=== PATIENT | male | born 2000 | race Two or more races ===

== ENCOUNTER 2024-07-23 15:08 | Inpatient (IN) | payer MEDICAID, SELFPAY ==
[2024-07-23] VITALS (7 sets, daily range): BP systolic 128–144; BP diastolic 52–94; PULSE 82–104; RESP 12–22; TEMP 37–37.3; O2SAT 97–100; BMI 29.0
--- NOTE | 2024-07-23 15:37 | PD.EDUPEX ---
Upper Extremity Injury RME/HPI General Chief Complaint: Burn/Smoke Inhalation Stated Complaint: BURN TO LEFT WRIST 5 DAYS AGO Time Seen by Provider: 07/23/24 15:14 Source: patient Arrival date/time: 07/23/24 15:08 23-year-old male with no known medical history presents to the emergency room with a chief complaint of a burn to his left wrist x 5 days Mode of arrival: ambulatory Limitations: no limitations Related Data Previous Rx's ?Medication ?Instructions ?Recorded albuterol sulfate 90 mcg/actuation 2 inh inhalation QID #1 ea 09/12/21 breath activated powder inhaler bacitracin 500 unit/gram topical 1 applic topical TID #28 grams 07/23/24 ointment cephalexin 500 mg capsule 500 mg PO BID 7 days #14 caps 07/23/24 Allergies Allergy/AdvReac Type Severity Reaction Status Date / Time No Known Allergies Allergy Verified 07/23/24 15:10 ED Exam General Limitations: Present no limitations Course Orders Category Date Time Status TET,DIP/PERT AC (Adult)-Tdap [Boostrix Adult (Tdap) Med 07/23/24 15:37 Discontinued Vacc] 0.5 ml IMI .ONCE ONE Vital Signs Vital signs: Vital Signs Temperature 98.7 F 07/23/24 15:28 Pulse Rate 82 07/23/24 15:28 Respiratory Rate 16 07/23/24 15:28 Blood Pressure 128/52 L 07/23/24 15:28 Pulse Oximetry (%) 97 07/23/24 15:28 Oxygen Delivery Method Room Air 07/23/24 15:28 Extremity Injury Medications / Prescriptions Medication administrations:: Medication Administration History Discontinued Medications Diphtheria/Tetanus/Acell Pertussis (Diphth,Pertuss(Acell),Tet Vac 0.5 Ml Syr- Adult) 0.5 ml IMi .ONCE ONE Stop: 07/23/24 15:38 Last Admin: 07/23/24 16:05 Dose: 0.5 ml Documented By: Discharge Plan Plan Patient Disposition: HOME (Self Care) Discharge Disposition comment: Stable Prescriptions/Referrals Prescriptions/Med Rec: New bacitracin 500 unit/gram ointment 1 applic topical TID Qty: 28 0RF cephalexin 500 mg capsule 500 mg PO BID 7 Days Qty: 14 0RF No Action albuterol sulfate 90 mcg/actuation aerosol powdr breath activated 2 inh inhalation QID Qty: 1 0RF Problem List Clinical Impression: Second degree burn of arm Patient/Caregiver Discharge Instructions Education Materials: ED Burn, Hot Water Additional Instructions: Please follow-up with your primary care provider in the next 24 to 48 hours Antibiotics were sent to your pharmacy please pick them up and take them as indicated For any evidence of worsening signs or symptoms return to the emergency room immediately Print Language: Lebanese Stand Alone Forms: Suzan Award Info., Patient Portal Info Letter PA/TAX COMPLIANCE OFFICER Supervising Physician PA/TAX COMPLIANCE OFFICER Supervising Physician: Dr. CASTELAN
[2024-07-23] MEDS: DIPHTH,PERTUSS(ACELL),TET VAC 0.5 ML SYR- ADULT IMi (16:05)
--- NOTE | 2024-07-23 16:18 | XR_ITS ---
Examination: CT brain head without contrast. 2-D sagittal coronal reconstructions Date and time of exam:July 23, 2024 1723 hours Comparison February 16, 2017 INDICATIONS: Seizures today CTDI: vol (mGy):46.7 DLP: (mGycm):894 Technique: Multiple CT axial sections of the brain have been obtained, 5 mm slice thickness. Contrast has not been administered. 2-D sagittal, coronal reconstructions have been obtained Low dose protocols were performed. One or more of the following dose reduction techniques were used; automated exposure control, adjustment of the mA and/or KV according to patient size, use of iterative reconstruction technique. Findings: No significant ventricular enlargement. Intra-axial or extra-axial hemorrhage density is not seen. No mass effect or midline shift Basal cisterns are not remarkable. Fourth ventricle is midline. Cranial vault intact. Impression: Negative for acute hemorrhage, mass effect or midline shift Consider elective brain MRI follow-up, pre and postcontrast, seizure protocol
--- NOTE | 2024-07-23 16:26 | EDNOTE_ITS ---
<Statement entered by Rosalinda Hawk MD - 07/24/24 06:23> As co-signing physician, I was present and available for consult prn. I concur with the plan and care as documented by the midlevel provider. ED Alcohol RME/HPI General Chief Complaint: Burn/Smoke Inhalation Stated Complaint: BURN TO LEFT WRIST 5 DAYS AGO Time Seen by Provider: 07/23/24 15:14 Source: patient Arrival date/time: 07/23/24 15:08 Mode of arrival: ambulatory Limitations: no limitations RME / HPI RME / HPI narrative: 23-year-old male patient with significant history of chronic alcoholism, came in for evaluation regarding burn to the left wrist area has been ongoing for the last 2 days. Patient drinking alcohol/beer according to the sister almost every hour. When the patient was about to be discharged patient developed tonic- clonic seizure was found on the floor while waiting in the RP, lasting for few minutes. On my initial evaluation patient was noted to be confused. Patient admits of drinking alcohol, last drink was last Saturday according to him. Denies any other complaints. Patient used to drink alcohol every day. Also complained of swelling, skin, and bleeding every time he is brushing his teeth. For several weeks now. Denies any blood in the stool or vomiting blood. Related Data Previous Rx's ?Medication ?Instructions ?Recorded albuterol sulfate 90 mcg/actuation 2 inh inhalation QI D #1 ea 09/12/21 breath activated powder inhaler bacitracin 500 unit/gram topical 1 applic topical TID #28 grams 07/23/24 ointment cephalexin 500 mg capsule 500 mg PO BID 7 days #14 cap s 07/23/24 Allergies Allergy/AdvReac Type Severity Reaction Status Date / Time No Known Allergies Allergy Verified 07/23/24 15:10 Review of Systems Review of Systems Narrative Review of Systems: Review of system reviewed and within normal limits except mentioned in HPI ED Exam Narrative Physical exam: VITAL SIGNS: Reviewed. GENERAL APPEARANCE: Alert and confused, follows simple commands, no acute distress, HEAD AND FACE: Non-traumatic. ENT: PERRL, pink conjunctivitis, eyelid no trauma, Mucous membrane moist. NECK: Supple, nontender, no nuchal rigidity. CHEST: No tenderness, no crepitus, no paradoxical movement, no retractions. LUNGS: Clear, well ventilated, symmetric, no rales, no wheezing, no ronchi, no stridor, good breath sounds bilaterally. HEART: Regular rate, regular rhythm, no murmur, no gallops. ABDOMEN: Soft, positive bowel sounds, nondistended, no guarding, nontender, no rebound, no masses, RECTAL: Deferred. GENITAL: Deferred. NEUROLOGICAL: Gross motor function intact sensory function intact, Appropriate for age. MUSCULOSKELETAL: low back nontender, full range of motion. EXTREMITIES: Nontender, full range of motion. + tremors SKIN: Color pink, dry, no rash, no lacerations, no abrasions, no contusions. LYMPHATICS: Deferred. General Limitations: Present no limitations Course Quality Measures none Orders Category Date Time Status COVID-19 Screening Questionnaire NOW Care 07/23/24 19:39 Ordered Decision to Admit X1 Care 07/23/24 19:[address] head/brain wo con Stat Exams 07/23/24 16:18 Completed Alcohol, Blood Medical Stat Lab 07/23/24 16:38 Completed Bilirubin,Direct Stat Lab 07/23/24 16:38 Completed CBC Stat Lab 07/23/24 16:38 Completed CMP [Comprehensive Metabolic Panel] Stat Lab 07/23/24 16:38 Completed Drug Screen,Urine Stat Lab 07/23/24 19:17 Received Lactate (Lactic Acid) Stat Lab 07/23/24 16:38 Results PT [Prothrombin Time with INR] Stat Lab 07/23/24 16:38 Completed PTT [Partial Thromboplastin Time] Stat Lab 07/23/24 16:38 Completed UA, C/S IF [Urinalysis, C/S if Indicated] Stat Lab 07/23/24 19:17 Completed LORazepam [Ativan Inj] Med 07/23/24 16:22 Discontinued 2 mg IVP X1 ONE LORazepam [Ativan Inj] Med 07/23/24 19:33 Discontinued 2 mg IVP X1 ONE Ondansetron Inj [Zofran Inj] Med 07/23/24 17:38 Discontinued 4 mg IVP X1 ONE Ringers Lactated 1000 ml [Lactated Ringers] 1,000 ml Med 07/23/24 19:33 Active IV 999 mls/hr Sodium Chloride 0.9% 1000 ml [Ns] 1,000 ml Med 07/23/24 16:23 Discontinued IV 999 mls/hr TET,DIP/PERT AC (Adult)-Tdap [Boostrix Adult (Tdap) Med 07/23/24 15:37 Discontinued Vacc] 0.5 ml IMI .ONCE ONE levETIRAcetam INJ [Keppra Inj] Med 07/23/24 19:33 Discontinued 1,000 mg IVP X1 ONE Vital Signs Vital signs: Vital Signs Temperature 98.7 F 07/23/24 15:28 Pulse Rate 82 07/23/24 15:28 Respiratory Rate 16 07/23/24 15:28 Blood Pressure 128/52 L 07/23/24 15:28 Pulse Oximetry (%) 97 07/23/24 15:28 Oxygen Delivery Method Room Air 07/23/24 15:28 Discharge Plan Plan Patient Disposition: Admit Acute Care w/in Hospital Discharge Disposition comment: Stable Prescriptions/Referrals Prescriptions/Med Rec: New bacitracin 500 unit/gram ointment 1 applic topical TID Qty: 28 0RF cephalexin 500 mg capsule 500 mg PO BID 7 Days Qty: 14 0RF No Action albuterol sulfate 90 mcg/actuation aerosol powdr breath activated 2 inh inhalation QID Qty: 1 0RF Problem List Clinical Impression: Second degree burn of arm, Alcohol withdrawal seizure Patient/Caregiver Discharge Instructions Education Materials: ED Burn, Hot Water Additional Instructions: Please follow-up with your primary care provider in the next 24 to 48 hours Antibiotics were sent to your pharmacy please pick them up and take them as indicated For any evidence of worsening signs or symptoms return to the emergency room immediately Print Language: Anguillan Stand Alone Forms: Suzan Award Info., Patient Portal Info Letter PA/DEPUTY SHERIFF BUILDING GUARD Supervising Physician PA/OFELIA Supervising Physician: Dr. ANNELISE Olvera MDM Narrative MDM Narrative: 23-year-old male patient with significant history of chronic alcoholism, came in for evaluation regarding burn to the left wrist area has been ongoing for the last 2 days. Patient drinking alcohol/beer according to the sister almost every hour. When the patient was about to be discharged patient developed tonic- clonic seizure was found on the floor while waiting in the RP, lasting for few minutes. On my initial evaluation patient was noted to be confused. Patient admits of drinking alcohol, last drink was last Saturday according to him. Denies any other complaints. Patient used to drink alcohol every day. Also complained of swelling, skin, and bleeding every time he is brushing his teeth. For several weeks now. Denies any blood in the stool or vomiting blood. EKG showed sinus rhythm, ventricular rate of 93 bpm, no ST segment elevation or depression noted. Patient's CBC is significant for WBC count of 12.3, hemoglobin of 8.9 hematocrit of 26.6 platelet 136 CMP potassium 3.1 lactic acid 11.2 total bili 1.4 direct bili 0.5 AST 144 alkaline phos 157. Patient was given IV fluids total 2 L, Ativan 2 mg x 2, and Keppra IV Plan of care discussed with the patient agrees to be admitted for Patient was also given potassium replacement Spoke with hospitalist who admitted the patient. Patient data External records reviewed:: None Clinical information provided by:: patient Social determinants that could affect healthcare access:: alcohol use Patient has the following chronic illnesses:: None How is presenting disease/condition affected by chronic disease/condition?: no chronic disease Evaluation data The following diagnostics were reviewed and interpreted by me:: lab results, radiology exam(s) and EKG tracing(s) Lab and/or radiology exams considered but not ordered:: None Interpretation Summary: CT scan of the head came back unremarkable. The rest of the labs see MDM Medications / Prescriptions Medications or Prescriptions considered but not ordered:: None Medication administrations:: Medication Administration History Lactated Ringer's (Lactated Ringers) 1,000 mls @ 999 mls/hr IV .Q1H1M ONE Stop: 07/23/24 20:33 Discontinued Medications Diphtheria/Tetanus/Acell Pertussis (Diphth,Pertuss(Acell),Tet Vac 0.5 Ml Syr- Adult) 0.5 ml IMi .ONCE ONE Stop: 07/23/24 15:38 Last Admin: 07/23/24 16:05 Dose: 0.5 ml Documented By: Sodium Chloride (Ns) 1,000 mls @ 999 mls/hr IV .Q1H1M ONE Stop: 07/23/24 17:23 Last Infusion: 07/23/24 19:00 Dose: Infused Documented By: Admin: 07/23/24 16:35 Dose: 999 mls/hr Documented By: ANGIE Levetiracetam (Levetiracetam Inj 100 Mg/Ml Vial 5ml) 1,000 mg IVP X1 ONE Stop: 07/23/24 19:34 Lorazepam (Lorazepam 2 Mg/Ml Vial) 2 mg IVP X1 ONE Stop: 07/23/24 16:23 Last Admin: 07/23/24 16:35 Dose: 2 mg Documented By: ANGIE Lorazepam (Lorazepam 2 Mg/Ml Vial) 2 mg IVP X1 ONE Stop: 07/23/24 19:34 Ondansetron HCl (Ondansetron Inj 2 Mg/Ml Inj 2 Ml) 4 mg IVP X1 ONE; Protocol Stop: 07/23/24 17:39 Last Admin: 07/23/24 17:41 Dose: 4 mg Documented By: ANGIE Chery Ativan Zofran IV fluids Boostrix Consultations Consultation(s) initiated? (list below): No Diagnosis Differential diagnosis alcohol: alcohol withdrawal delirium, alcohol intoxication and alcohol withdrawal syndrome Most likely diagnosis given after review of the tests above:: Alcohol withdrawal seizure, second-degree burn left forearm Admission Indicated Admission indicated?: not indicated Admission Request Was there a request for admission?: Yes Admission Attestation Admission request attestation: Discussed case with [Dr. Krishnamurthy] from Hospitalist service regarding admission. Discussed patients ED course, exam findings, labs, and radiology results. The Hospitalist [agrees] to accept the patient for admission. Disposition Plan Disposition Plan: Admit
--- NOTE | 2024-07-23 16:30 | PC.NURSE ---
PT WAS FOUND BY STAFF IN [facility]AV[facility] SZ. PT WOKE UP AND WAS CONFUSED, COMBATIVE AND POSTICAL, NOTED BLOOD COMING FROM MOUTH AND POSSIBLE BITE ON HIS TONGUE. NURSE THAT WAS DOWN IN THAT SECTION STATED THAT IT POSSIBLE LASTED 1-2 MIN AND WAS TONIC CLONIC. PT STILL CONFUSED AND UNABLE TO ANSWER QUESTIONS. PT HAS KNOWN ALCOHOL ABUSE IN HX. PT MOVED TO 2 AND PLACED ON MONITOR/PULSE OX AND SZ PRECAUTIONS.
--- NOTE | 2024-07-23 16:31 | PD.EDRME ---
Rapid Medical Screening Exam RME Arrival date/time: 07/23/24 15:08 23-year-old male patient with significant history of chronic alcoholism, came in for evaluation regarding burn to the left wrist area has been ongoing for the last 5 days. When the patient was about to be discharged patient developed tonic-clonic seizure was found on the floor while waiting in the RP, lasting for few minutes. On my initial evaluation patient was noted to be confused. Patient admits of drinking alcohol, last drink was last Saturday according to him. Denies any other complaints. Patient used to drink alcohol every day. Chief Complaint: Burn/Smoke Inhalation Time Seen by Provider: 07/23/24 15:14 Vital signs: Vital Signs Temperature 98.7 F 07/23/24 15:28 Pulse Rate 82 07/23/24 15:28 Respiratory Rate 16 07/23/24 15:28 Blood Pressure 128/52 L 07/23/24 15:28 Pulse Oximetry (%) 97 07/23/24 15:28 Oxygen Delivery Method Room Air 07/23/24 15:28 Vital signs reviewed by provider: Yes RM Narrative: 23-year-old male patient with significant history of chronic alcoholism, came in for evaluation regarding burn to the left wrist area has been ongoing for the last 5 days. When the patient was about to be discharged patient developed tonic-clonic seizure was found on the floor while waiting in the RP, lasting for few minutes. On my initial evaluation patient was noted to be confused. Patient admits of drinking alcohol, last drink was last Saturday according to him. Denies any other complaints. Patient used to drink alcohol every day.
[2024-07-23] MEDS: LORazepam 2 MG/ML VIAL IVP ×2 (16:35→19:57)
[2024-07-23] MEDS: SODIUM CHLORIDE 0.9% 1000 ML 1,000 ML 999 ML IV (16:35)
[2024-07-23 17:04] LABS: Basophils # (Auto) 0.1 Thou/mm3 (0.0-0.2); Basophils % (Auto) 1 % (0-2.5); Eosinophils % (Auto) 0 % (0-10); Hematocrit 26.6 % (41.0-53.0); Immature Granulocytes % (Auto) 0 % (0-0); Immature Granulocytes Auto 0.05 Thou/mm3 (0.00-0.00); Lymphocytes # (Auto) 1.7 Thou/mm3 (1.0-4.8); Lymphocytes % (Auto) 14 % (10-50); Mean Corpuscular HGB Conc 30.5 g/dl (31.0-37.0); Mean Corpuscular Hemoglobin 21.7 pg (25.0-35.0); Mean Corpuscular Volume 71 fL (80-100); Monocytes # (Auto) 1.2 Thou/mm3 (0.0-0.8); Monocytes % (Auto) 10 % (0-12); Neutrophils # (Auto) 9.2 Thou/mm3 (1.8-7.7); Neutrophils % (Auto) 75 % (37-80); Nucleated Red Blood Cell # 0.02 Thou/mm3 (0.00-0.00); Nucleated Red Blood Cell % 0 /100 WBC (0); Platelet Count 136 Thou/mm3 (140-440); RDW Standard Deviation 51.4 fL (35.1-43.9); Red Blood Count 3.73 Miln/mm3 (4.50-5.90); White Blood Count 12.3 Thou/mm3 (3.8-10.6)
[2024-07-23 17:05] LABS: Lactate (Lactic Acid) 11.2 mMol/L (0.4-2.0)
[2024-07-23 17:26] LABS: INR 1.1 (0.9-1.3); Partial Thromboplastin Time 26.7 Seconds (22.0-36.0); Prothrombin Time 12.1 Seconds (9.0-12.2)
[2024-07-23 17:34] LABS: Alanine Aminotransferase 46 U/L (10-49); Albumin, Serum 4.6 gm/dL (3.5-5.0); Albumin/Globulin Ratio 1.1 (1.2-2.2); Alcohol, Blood Medical < 3.0 mg/dL (0-10.0); Alkaline Phosphatase 157 U/L (46-116); Anion Gap 20 (7-16); Aspartate Amino Transferase 144 U/L (0-34); BUN/Creatinine Ratio 12 Ratio (12-20); Bilirubin,Direct 0.5 mg/dL (0.0-0.3); Bilirubin,Total 1.4 mg/dL (0.3-1.2); Blood Urea Nitrogen 11 mg/dL (9-23); Calcium 8.8 mg/dL (8.3-10.6); Calcium (Corrected) 8.8 mg/dL (8.5-10.1); Carbon Dioxide 20.8 mMol/L (20.0-31.0); Chloride 95 mMol/L (98-107); Creatinine (Component) 0.9 mg/dL (0.6-1.3); Estimated Creatinine Clearance 125.9 mL/min (>60); Globulin 4.3 gm/dL (2.3-3.5); Glucose 136 mg/dL (74-106); Osmolality,Calculated 273 (275-295); Potassium 3.1 mMol/L (3.4-5.1); Sodium 136 mMol/L (136-145); Total Protein 8.9 gm/dL (5.7-8.2); eGFR > 60 See Note
[2024-07-23] MEDS: ONDANSETRON INJ 2 MG/ML INJ 2 ML 4 MG IVP (17:41)
[2024-07-23 17:44] LABS: Hemoglobin 8.1 g/dL (13.5-16.0)
[2024-07-23 19:28] LABS: Collection Type, Urine Clean Catch
[2024-07-23 19:31] LABS: Bilirubin,Urine Negative (Negative); Blood,Urine Negative (Negative); Clarity,Urine Clear (Clear/Hazy); Color,Urine Lt-Yellow (Lt Yel-Yel); Culture Indicated,Urine Not Indicated; Glucose, Urine Negative (Negative); Ketones,Urine Negative (Negative); Leukocyte Esterase,Urine Negative (Negative); Nitrite,Urine Negative (Negative); PH,Urine 7.5 (5.0-7.0); Protein,Urine 1+ (Neg - Trace); RBC,Urine 2 /hpf (0-3); Specific Gravity,Urine 1.014 (1.001-1.035); Squamous Epithelial Cell,Urine < 1 /hpf (0-5); Urobilinogen,Urine Negative mg/dL (0.0-1.0); WBC,Urine 1 /hpf (0-5)
[2024-07-23 19:58] LABS: Reflex Lactate? Y
[2024-07-23] MEDS: levETIRAcetam INJ 100 MG/ML VIAL 5ML 1000 MG IVP (19:58)
[2024-07-23] MEDS: RINGERS LACTATED 1000 ML 1,000 ML 999 ML IV (19:58)
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
[2024-07-23] MEDS: Magnesium Sulfate 2 GM Ivpb 2 GM/50 ML BAG IV (20:42)
[2024-07-23] MEDS: THIAMINE INJ 100 MG/ML VIAL 2 ML IVP (20:45)
[2024-07-23] MEDS: FOLIC ACID INJ 1 MG/0.2 ML IVP (20:46)
[2024-07-23 20:50] LABS: Lactic Acid, 3 HR 1.6 mMol/L (0.4-2.0)
[2024-07-23 22:10] LABS: Amphetamine/Methamp Scrn,U Negative (Negative); Barbiturate Screen,Urine Negative (Negative); Benzodiazepines Screen,Urine Negative (Negative); Benzoylecgonine Screen, Ur Negative (Negative); Fentanyl Screen,Urine Negative (Negative); Opiate Screen,Urine Negative (Negative); THC Screen,Urine Negative (Negative)
[2024-07-23 22:15] LABS: LDH (Lactate Dehydrogenase) 198 U/L (120-246)
[2024-07-23] MEDS: chlordiazePOXIDE HCl 25 MG CAPSULE PO (22:39)
[2024-07-24] VITALS (11 sets, daily range): BP systolic 104–132; BP diastolic 62–80; PULSE 76–139; RESP 14–98; TEMP 36.1–37.7; O2SAT 97–100; BMI 24.3
[2024-07-24] MEDS: LORazepam 0.5 MG TABLET 1 MG PO ×2 (04:07→08:39)
[2024-07-24] MEDS: chlordiazePOXIDE HCl 25 MG CAPSULE PO ×3 (05:37→21:32)
[2024-07-24 06:15] LABS: Basophils % (Auto) 1 % (0-2.5); Eosinophils # (Auto) 0.2 Thou/mm3 (0.0-0.5); Eosinophils % (Auto) 2 % (0-10); Hematocrit 25.2 % (41.0-53.0); Immature Granulocytes % (Auto) 0 % (0-0); Immature Granulocytes Auto 0.02 Thou/mm3 (0.00-0.00); Immature Reticulocyte Fraction 33.3 % (2.3-13.4); Lymphocytes # (Auto) 0.8 Thou/mm3 (1.0-4.8); Lymphocytes % (Auto) 12 % (10-50); Mean Corpuscular HGB Conc 30.2 g/dl (31.0-37.0); Mean Corpuscular Hemoglobin 21.7 pg (25.0-35.0); Mean Corpuscular Volume 72 fL (80-100); Monocytes # (Auto) 0.7 Thou/mm3 (0.0-0.8); Monocytes % (Auto) 10 % (0-12); Neutrophils # (Auto) 4.9 Thou/mm3 (1.8-7.7); Neutrophils % (Auto) 75 % (37-80); Nucleated Red Blood Cell % 0 /100 WBC (0); Platelet Count 108 Thou/mm3 (140-440); RDW Standard Deviation 50.6 fL (35.1-43.9); Red Blood Count 3.51 Miln/mm3 (4.50-5.90); Reticulocyte % (Auto) 2.5 % (0.5-1.5); Reticulocyte Absolute Auto 87.4 Biln/L (25.0-75.0); White Blood Count 6.5 Thou/mm3 (3.8-10.6)
[2024-07-24 06:23] LABS: Hemoglobin 7.6 g/dL (13.5-16.0)
[2024-07-24 06:26] LABS: INR 1.1 (0.9-1.3); Prothrombin Time 11.9 Seconds (9.0-12.2)
[2024-07-24 06:29] LABS: Iron 41 mcg/dL (65-175); Percent Iron Saturation 9 % (20-55); Total Iron Binding Capacity 423 mcg/dL (250-425); Unsaturated Iron Binding 382 (225-295)
[2024-07-24 06:38] LABS: Alanine Aminotransferase 37 U/L (10-49); Albumin, Serum 3.9 gm/dL (3.5-5.0); Alkaline Phosphatase 133 U/L (46-116); Anion Gap 10 (7-16); Aspartate Amino Transferase 144 U/L (0-34); BUN/Creatinine Ratio 12 Ratio (12-20); Bilirubin,Direct 0.6 mg/dL (0.0-0.3); Bilirubin,Total 1.5 mg/dL (0.3-1.2); Blood Urea Nitrogen 7 mg/dL (9-23); Calcium 8.4 mg/dL (8.3-10.6); Carbon Dioxide 27.2 mMol/L (20.0-31.0); Cardiac Risk Estimate 2.2 RATIO (4.0-6.7); Chloride 100 mMol/L (98-107); Cholesterol 276 mg/dL (132-200); Creatinine (Component) 0.6 mg/dL (0.6-1.3); Estimated Creatinine Clearance 169.8 mL/min (>60); Glucose 93 mg/dL (74-106); HDL Cholesterol 124 mg/dL (40-60); LDL Cholesterol,Calculated 133 mg/dL (0-130); Magnesium 2.1 mg/dL (1.6-2.6); Osmolality,Calculated 271 (275-295); Phosphorous 2.5 mg/dL (2.4-5.1); Potassium 3.3 mMol/L (3.4-5.1); Sodium 137 mMol/L (136-145); Thyroid Stimulating Hormone 2.38 uIU/mL (0.55-4.78); Total Protein 7.6 gm/dL (5.7-8.2); Triglycerides 96 mg/dL (30-150); eGFR > 60 See Note
[2024-07-24] MEDS: FOLIC ACID INJ 1 MG/0.2 ML IVP (08:21)
[2024-07-24] MEDS: PANTOPRAZOLE INJ 40 MG VIAL IVP (08:21)
[2024-07-24] MEDS: POTASSIUM CHLORIDE 20 mEq TABCR 40 MEQ PO ×2 (08:39→11:26)
--- NOTE | 2024-07-24 09:23 | PC.SS ---
Follow up note: Pt is on CWAL Protocol. Hemoglobin is low. Consulting GI. FOBT is pending.
[2024-07-24 09:25] LABS: Ferritin 17 ng/mL (10.5-307.3)
--- NOTE | 2024-07-24 10:02 | XR_ITS ---
Examination: Abdomen sonogram, complete Date and time of exam: July 24, 2024 1016 hours INDICATIONS: Elevated liver function tests on laboratory examination 2 days ago. Technique: Multiple real-time grayscale transabdominal sonographic images of the abdomen have been obtained. Findings: 6 mm gallbladder polyp Gallbladder wall is thickened up to 0.54 cm with edema No gallstones Common bile duct 0.3 cm Pancreatic head 2.3 cm Aorta not enlarged. Liver 18.5 cm fatty infiltration mildly lobular contour. Normal hepatopedal portal venous flow Patent IVC Right kidney 13.1 cm renal cortex 1.6 cm Left kidney 12.2 cm cortex 2.2 cm Mild renal parenchymal scar formation Spleen 12.1 cm IMPRESSION: Findings most consistent with acute acalculous cholecystitis, recommend HIDA scan or MRCP follow-up
[2024-07-24] MEDS: THIAMINE INJ 500 MG in SODIUM CHLORIDE 0.9% 100 ML 210 MG IV ×3 (10:04→21:31)
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
[2024-07-24 10:11] LABS: Folate 20.02 ng/mL (>5.38); Vitamin B12 1119 pg/mL (211-911)
--- NOTE | 2024-07-24 11:10 | PC.SS ---
SS met with patient regarding his d/c plan. Pt is alert/oriented. Pt was admitted for alcohol Withdrawal. Pt states he last consumed alcohol (3) 48 oz beers on Saturday. Pt explained he consumes about a 12 pack of beer everyday for the past 2 years. SS offered pt community resource to AA meeting and pt was receptive. Pt confirmed demographic and contact information is correct on facesheet. Pt resides with his sister, brother, and brother in law. Pt ambulates independently without assistance or DME. Pt is ok with all ADLs. Patient?s pharmacy of choice is [facility] on [address]. Pt named his sister, Lorenza Marroquin medical decision maker if he is unable. Patient?s choice is to return home upon d/c and his sister will provide transportation. Pt is requesting to establish PCP at [facility]. D/C plan: Return home Next of Kin: Lorenza Marroquin, sister, phone# [phone] PCP: [facility] Address: Correct on facesheet
--- NOTE | 2024-07-24 11:24 | PCS.ST ---
Tolerating diet. No dysphagia. No formal swallow evaluation warranted at this time.
[2024-07-24 11:47] LABS: Path Review Blood Smear Sent to Pathologist
[2024-07-24] MEDS: LORazepam 0.5 MG TABLET PO (12:46)
[2024-07-24 14:24] LABS: Hematocrit 25.7 % (41.0-53.0)
[2024-07-24] MEDS: ATORVASTATIN CALCIUM 10 MG TABLET PO (21:32)
[2024-07-25] VITALS (8 sets, daily range): BP systolic 116–133; BP diastolic 74–92; PULSE 65–103; RESP 15–100; TEMP 36.1–36.8; O2SAT 99–100; BMI 24.2
[2024-07-25] MEDS: chlordiazePOXIDE HCl 25 MG CAPSULE PO ×3 (05:17→21:26)
[2024-07-25] MEDS: THIAMINE INJ 500 MG in SODIUM CHLORIDE 0.9% 100 ML 210 MG IV ×3 (05:18→21:26)
[2024-07-25 06:24] LABS: Basophils # (Auto) 0.1 Thou/mm3 (0.0-0.2); Basophils % (Auto) 1 % (0-2.5); Eosinophils # (Auto) 0.4 Thou/mm3 (0.0-0.5); Eosinophils % (Auto) 6 % (0-10); Hematocrit 25.9 % (41.0-53.0); Immature Granulocytes % (Auto) 0 % (0-0); Immature Granulocytes Auto 0.02 Thou/mm3 (0.00-0.00); Lymphocytes # (Auto) 1.3 Thou/mm3 (1.0-4.8); Lymphocytes % (Auto) 20 % (10-50); Mean Corpuscular HGB Conc 30.9 g/dl (31.0-37.0); Mean Corpuscular Hemoglobin 21.8 pg (25.0-35.0); Mean Corpuscular Volume 71 fL (80-100); Monocytes # (Auto) 0.7 Thou/mm3 (0.0-0.8); Monocytes % (Auto) 11 % (0-12); Neutrophils # (Auto) 4.1 Thou/mm3 (1.8-7.7); Neutrophils % (Auto) 63 % (37-80); Nucleated Red Blood Cell % 0 /100 WBC (0); Platelet Count 120 Thou/mm3 (140-440); RDW Standard Deviation 49.7 fL (35.1-43.9); Red Blood Count 3.67 Miln/mm3 (4.50-5.90); White Blood Count 6.6 Thou/mm3 (3.8-10.6)
[2024-07-25 06:36] LABS: Anion Gap 11 (7-16); BUN/Creatinine Ratio 16 Ratio (12-20); Blood Urea Nitrogen 11 mg/dL (9-23); Calcium 8.9 mg/dL (8.3-10.6); Carbon Dioxide 25.1 mMol/L (20.0-31.0); Chloride 102 mMol/L (98-107); Creatinine (Component) 0.7 mg/dL (0.6-1.3); Estimated Creatinine Clearance 145.6 mL/min (>60); Glucose 96 mg/dL (74-106); Magnesium 1.7 mg/dL (1.6-2.6); Osmolality,Calculated 275 (275-295); Phosphorous 2.7 mg/dL (2.4-5.1); Potassium 3.6 mMol/L (3.4-5.1); Sodium 138 mMol/L (136-145); eGFR > 60 See Note
--- NOTE | 2024-07-25 08:29 | XR_ITS ---
MRI abdomen, without contrast. MRCP Date and time of exam: July 25, 2024, 1058 hrs. Indications: Alcohol abuse history altered mental status upper abdominal pain, diagnosis acute acalculous cholecystitis Ultrasound abdomen July 24, 2024 Technique: Multiple axial and coronal images of the abdomen have been obtained with the Siemens 1.5T MRI scanner. Images obtained included T1 weighted transverse images, T2-weighted transverse images, T2-weighted transverse images fat-suppressed, T2 weighted haste fat suppressed transverse images, T1 weighted images, in and out of phase images, T2-weighted coronal images, breath hold, T2 weighted haze coronal images as well as T2 weighted coronal thick slab images, MRCP. Findings: Hepatomegaly 20 cm The gallbladder is severely contracted which makes assessment difficult No common hepatic or common bile duct stones No ascites No pancreatic edema Liver contour is irregular Mild splenomegaly Impression: Cirrhosis Mild splenomegaly The gallbladder is severely contracted which limits assessment
[2024-07-25] MEDS: FOLIC ACID INJ 1 MG/0.2 ML IVP (08:37)
[2024-07-25] MEDS: PANTOPRAZOLE INJ 40 MG VIAL IVP (08:37)
[2024-07-25] MEDS: LORazepam 0.5 MG TABLET PO (08:57)
--- NOTE | 2024-07-25 11:18 | PC.SS ---
SS received call from physician team that patient may leave AMA. SS reviewed notes and staff already provided a list of alcohol/drug rehab resources.
--- NOTE | 2024-07-25 13:59 | ESPR_ITS ---
Addendum Progress Note Addendum Date of report being addended: 07/25/24 Narrative: Attending's attestation: I reviewed labs, imaging, EKG, home medications and prior available records. Face to face evaluation was performed by me. I have personally examined the patient and discussed assessment and plan with the IM team. I reviewed the resident note and agree with the plan with exceptions as below. Alcohol-related seizure Alcohol abuse Lactic acidosis Transaminitis Hypokalemia Acute anemia Thrombocytopenia Hyperlipidemia Liver ultrasound showed possible cholecystitis. Ordered MRCP that showed no definitive cholecystitis but liver cirrhosis. Consulted GI for further recommendations H&H is stable. He has microcytic anemia likely from alcohol use. Ordered FOBT Ativan as needed for breakthrough seizures Counseled the patient regarding the importance of alcohol cessation Discussed with mental health social worker for alcohol cessation assistance/resources Lactic acid is downtrending Hemoglobin dropped. No signs of active bleeding. Monitor H&H closely Monitor platelet level Started atorvastatin 10 mg Replete electrolytes as needed and monitor BMP
--- NOTE | 2024-07-25 14:18 | PD.RESPRO ---
Documentation for date of: 07/25/24 Subjective Subjective Interval history: Patient examined at bedside today. No acute overnight events. Patient is reporting that he would like to go home as he needs to go do a favor for his significant other and needs to come back. He said that he will come back to the emergency room. Denies having any auditory or visual hallucinations. Denies being nauseous or vomiting. He denies having any hemoptysis, hematochezia or melena. Denies fever and chills. No other complaints at this time Exam Vital Signs Temp Pulse Resp BP Pulse Ox O2 Del Method 98.2 F 103 H 15 119/92 H 100 Room Air 07/25/24 12:00 07/25/24 12:00 07/25/24 12:00 07/25/24 12:00 07/25/24 12:00 07/25/24 12:00 Narrative Exam General: AAOx3, NAD, young male, pleasant, he is not shaking much compared to yesterday HEENT: Moist mucous membranes, conjunctiva clear, EOMI, PERRLA, some dried blood in upper lip Cardiovascular: S1, S2, radial pulses +2 bilat, RRR Pulmonary: CTAB bilat no cough, no wheezing GI: No tenderness to light or deep palpitation, no guarding, rigidity, rebound tenderness or distension, bowel sounds present Extremities: No presence of trace or pitting edema in lower extremities bilaterally, dorsalis pedis pulses +2 bilaterally, dressing over L wrist Neuro: AAOx3, no focal motor or sensory deficits in the UE or LE bilat Psych: Cooperative, he is not shaking much compared to yesterday, no active hallucinations Objective Labs 07/25/24 05:06 07/25/24 05:06 Labs: Laboratory Results - last 24 hr 07/24/24 07/25/24 14:08 05:06 WBC 6.6 RBC 3.67 L Hgb 8.0 L 8.0 L Hct 25.7 L 25.9 L MCV 71 L MCH 21.8 L MCHC 30.9 L RDW Std Deviation 49.7 H Plt Count 120 L Neut % (Auto) 63 Lymph % (Auto) 20 [place] % (Auto) 11 Eos % (Auto) 6 Baso % (Auto) 1 Neut # (Auto) 4.1 Lymph # (Auto) 1.3 [place] # (Auto) 0.7 Eos # (Auto) 0.4 Baso # (Auto) 0.1 Immature Gran # (Auto) 0.02 H Absolute Nucleated RBC 0.00 Immature Gran % 0 Nucleated RBC % 0 Sodium 138 Potassium 3.6 Chloride 102 Carbon Dioxide 25.1 Anion Gap 11 BUN 11 Creatinine 0.7 Estim Creat Clear Calc 145.6 eGFR > 60 BUN/Creatinine Ratio 16 Glucose 96 Calculated Osmolality 275 Calcium 8.9 Phosphorus 2.7 Magnesium 1.7 Quality Measures Quality Measures none Assessment & Plan Assessment Current Active Medications: Generic Name Dose Route Start Last Admin Trade Name Freq PRN Reason Stop Dose Admin Acetaminophen 650 mg 07/23/24 20:33 Acetaminophen 325 Mg Tablet PO 08/22/24 20:32 Q6H PRN PAIN OR FEVER > 101 Atorvastatin Calcium 10 mg 07/24/24 21:00 07/24/24 21:32 Atorvastatin Calcium 10 Mg Tablet PO 08/23/24 20:59 10 mg HS GEE Administration Chlordiazepoxide HCl 25 mg 07/23/24 22:00 07/25/24 13:54 Chlordiazepoxide Hcl 25 Mg Capsule PO 07/28/24 21:59 25 mg Q8HR GEE Administration Folic Acid 1 mg 07/26/24 09:00 Folic Acid 1 Mg Tablet PO 08/25/24 08:59 QDAY GEE Thiamine HCl 500 mg/ Sodium 105 mls @ 210 mls/hr 07/24/24 08:30 07/25/24 13:54 Chloride IV 07/25/24 22:29 210 mls/hr TID GEE Administration Thiamine HCl 250 mg/ Sodium 102.5 mls @ 205 mls/hr 07/26/24 09:00 Chloride IV 08/25/24 08:59 QDAY GEE Lorazepam 1 mg 07/23/24 20:36 Lorazepam 2 Mg/Ml Vial IV Q4HR PRN CIWA 12-16 Lorazepam 2 mg 07/23/24 20:36 Lorazepam 2 Mg/Ml Vial IV 07/28/24 20:35 Q2HR PRN CIWA SCORE 17-25 Lorazepam 0.5 mg 07/23/24 20:36 07/25/24 08:57 Lorazepam 0.5 Mg Tablet PO 07/28/24 20:35 0.5 mg Q4HR PRN Administration CIWA Score 2-6 Lorazepam 1 mg 07/23/24 20:36 07/24/24 08:39 Lorazepam 0.5 Mg Tablet PO 07/28/24 20:35 1 mg Q4HR PRN Administration CIWA SCORE 7-11 Ondansetron HCl 4 mg 07/23/24 20:33 Ondansetron Inj 2 Mg/Ml Inj 2 Ml IV 08/22/24 20:32 Q6H PRN NAUSEA OR VOMITING Protocol Pantoprazole Sodium 40 mg 07/24/24 09:00 07/25/24 08:37 Pantoprazole Inj 40 Mg Vial IVP 08/23/24 08:59 40 mg QDAY GEE Administration Sennosides 2 tab 07/23/24 20:33 Senna Tablet PO 08/22/24 20:32 BID PRN CONSTIPATION Protocol Plan Assessment Alpesh is a 23-year-old male with a past medical history of alcohol abuse disorder, withdrawal seizures, who is admitted for alcohol withdrawal and seizure. #Alcohol withdrawal seizure #Alcohol withdrawal #Alcohol use disorder Likely related to acute alcohol withdrawal Patient likely had a seizure due to lactic acidosis that resolved and biting tongue and it was short lasted Patient's CIWA scores have been below 2. Patient continues to improve from a withdrawal perspective Will continue treatment Plan: ? CIWA protocol with Ativan ? Librium 25mg q8hr ? Thiamine 500 mg IV every 8 hours for 2 days, 250 mg for 5 days after ? Folate 1 mg every day ? senior administrative services officer referral ? Telemetry ? Keep magnesium and potassium above 4 and 2 respectively ? Seizure precautions #Newly diagnosed cirrhosis #Acalculous cholecystitis, Ruled out Liver ultrasound shows possible acute cholecystitis MRCP ordered and showed cirrhosis and hepatocellular disease, however no cholecystitis No sign of infection at this time Due to new diagnosis of cirrhosis we will consult GI for further workup Plan: ? GI consulted, appreciate recs ? Trend markers with CMP #Iron deficiency microcytic anemia #? Acute blood loss anemia #Thrombocytopenia, improving #Elevated Transminases DDx: GI Bleed, iron deficiency, varices, cirrhosis FOBT? Pending NSAID use? Unsure Blood thinner use? None Hemoglobin 8.0 today AST/ALT elevated in 2;1 fashion, indicative of EtOH use Iron 41 (low), ferritin 17 low normal, TIBC unremarkable, folate and B12 within normal limits, reticulocyte count responding Patient could have iron deficiency anemia Plan: ? Trend CBC ? Peripheral blood smear ? Transfusion protocol hemoglobin below 7 ? Avoiding any NSAIDs ? SCDs ? Protonix 40 mg daily ? Follow-up FOBT #Hyperlipidemia LDL 130, HDL 123 Plan: ? Continue Lipitor 10 mg at bedtime #Second-degree burn, left wrist Received tetanus shot in ED Currently has dressing at this point Plan: ? Wound care #Leukocytosis, resolved #Lactic acidosis, resolved #Hypokalemia, resolved #Health Maintenance Disposition: Telemetry DVT prophylaxis: SCDs GI prophylaxis: Protonix Diet: Regular CODE STATUS: Full Patient seen and care discussed with my senior resident, Dr. Trent Storey, PGY-1 Attending Provider Attestation/Addendum I reviewed labs, imaging, EKG, home medications and prior available records. Face to face evaluation was performed by me. I have personally examined the patient and discussed assessment and plan with the IM team. I reviewed the resident note and agree with the plan with exceptions as below. Alcohol-related seizure Alcohol abuse Lactic acidosis Transaminitis Hypokalemia Acute anemia Thrombocytopenia Hyperlipidemia Liver ultrasound showed possible cholecystitis. Ordered MRCP that showed no definitive cholecystitis but liver cirrhosis. Consulted GI for further recommendations H&H is stable. He has microcytic anemia likely from alcohol use. Ordered FOBT Ativan as needed for breakthrough seizures Counseled the patient regarding the importance of alcohol cessation Discussed with administrator social welfare for alcohol cessation assistance/resources Lactic acid is downtrending Hemoglobin dropped. No signs of active bleeding. Monitor H&H closely Monitor platelet level Started atorvastatin 10 mg Replete electrolytes as needed and monitor BMP
--- NOTE | 2024-07-25 15:17 | PD.IMCONS ---
HPI Data of Consult Requesting Physician: Kd Avitia MD Primary Care Provider: Physician No Primary/Family Consult Narrative Reason for consult: Posthemorrhagic anemia H&H 8.0 and 25.9 History of present illness: 23 years old male admitted for alcohol withdrawal seizures as insulin 12 beers a day He had a witnessed seizure with a fall in the emergency room CT scan of the head was negative he was also found to have very low hemoglobin hematocrit of 8.0 and 25.9 and a low platelet count of 120,000 Total bilirubin 1.5 AST ALT 144 and 37 and alk phos of 133 Abdominal ultrasound showed thickened gallbladder wall 6 mm gallbladder polyp MRCP showed negative and no stones in the common bile duct of the common hepatic duct contracted gallbladder and mild splenomegaly cc:: cc: Kd Avitia MD Review of Systems Review of Systems Systems Reviewed: All systems reviewed, normal except as documented Past Medical History Surgical History OTHER SURGICAL HX: As in the history of present illness Meds Home Medications and Allergies Allergies Allergy/AdvReac Type Severity Reaction Status Date / Time No Known Allergies Allergy Verified 07/23/24 15:10 Exam Vital Signs Temp Pulse Resp BP Pulse Ox O2 Del Method 98.2 F 103 H 15 119/92 H 100 Room Air 07/25/24 12:00 07/25/24 12:00 07/25/24 12:00 07/25/24 12:00 07/25/24 12:00 07/25/24 12:00 Constitutional Comments: Chronically ill-appearing icteric sclera Routine Respiratory Exam Comments: Normal to auscultation Results Labs 07/25/24 05:06 07/25/24 05:06 Labs: Short CBC 07/25/24 Range/Units 05:06 WBC 6.6 (3.8-10.6) Thou/mm3 Hgb 8.0 L (13.5-16.0) g/dL Hct 25.9 L (41.0-53.0) % Plt Count 120 L (140-440) Thou/mm3 BMP 07/25/24 05:06 Sodium 138 Potassium 3.6 Chloride 102 Carbon Dioxide 25.1 BUN 11 Creatinine 0.7 Glucose 96 Calcium 8.9 Assessment and Plan Additional Assessment & Plan Additional Plan: # Anemia of blood loss most likely alcohol induced gastritis hypertensive portal gastropathy mild intermittent bleeding from the varices in the setting of chronic liver disease secondary to alcohol # Alcohol withdrawal seizure # Chronic liver disease with thrombocytopenia and portal hypertension secondary to alcohol Thank you very much for the opportunity to participate in the care of this patient
[2024-07-25] MEDS: ATORVASTATIN CALCIUM 10 MG TABLET PO (21:26)
[2024-07-26] VITALS (12 sets, daily range): BP systolic 82–131; BP diastolic 43–90; PULSE 60–99; RESP 12–99; TEMP 36.1–37.1; O2SAT 97–100; BMI 24.2
[2024-07-26 06:03] LABS: Basophils # (Auto) 0.1 Thou/mm3 (0.0-0.2); Basophils % (Auto) 1 % (0-2.5); Eosinophils # (Auto) 0.4 Thou/mm3 (0.0-0.5); Immature Granulocytes % (Auto) 0 % (0-0); Neutrophils % (Auto) 58 % (37-80); Nucleated Red Blood Cell % 0 /100 WBC (0); White Blood Count 6.9 Thou/mm3 (3.8-10.6)
[2024-07-26] MEDS: chlordiazePOXIDE HCl 25 MG CAPSULE PO (06:03)
[2024-07-26 06:05] LABS: Eosinophils % (Auto) 5 % (0-10); Hematocrit 25.5 % (41.0-53.0); Immature Granulocytes Auto 0.02 Thou/mm3 (0.00-0.00); Lymphocytes # (Auto) 1.4 Thou/mm3 (1.0-4.8); Lymphocytes % (Auto) 20 % (10-50); Mean Corpuscular HGB Conc 29.8 g/dl (31.0-37.0); Mean Corpuscular Hemoglobin 21.8 pg (25.0-35.0); Mean Corpuscular Volume 73 fL (80-100); Monocytes # (Auto) 1.1 Thou/mm3 (0.0-0.8); Monocytes % (Auto) 16 % (0-12); Platelet Count 154 Thou/mm3 (140-440); RDW Standard Deviation 50.8 fL (35.1-43.9); Red Blood Count 3.48 Miln/mm3 (4.50-5.90)
[2024-07-26 06:08] LABS: Hemoglobin 7.6 g/dL (13.5-16.0)
[2024-07-26 07:01] LABS: Alanine Aminotransferase 49 U/L (10-49); Albumin, Serum 3.9 gm/dL (3.5-5.0); Albumin/Globulin Ratio 1.1 (1.2-2.2); Alkaline Phosphatase 156 U/L (46-116); Anion Gap 13 (7-16); Aspartate Amino Transferase 110 U/L (0-34); BUN/Creatinine Ratio 14 Ratio (12-20); Blood Urea Nitrogen 10 mg/dL (9-23); Calcium (Corrected) 9.1 mg/dL (8.5-10.1); Chloride 103 mMol/L (98-107); Creatinine (Component) 0.7 mg/dL (0.6-1.3); Estimated Creatinine Clearance 145.6 mL/min (>60); Globulin 3.7 gm/dL (2.3-3.5); Glucose 100 mg/dL (74-106); Magnesium 1.6 mg/dL (1.6-2.6); Osmolality,Calculated 278 (275-295); Phosphorous 3.6 mg/dL (2.4-5.1); Potassium 3.3 mMol/L (3.4-5.1); Sodium 140 mMol/L (136-145); Total Protein 7.6 gm/dL (5.7-8.2); eGFR > 60 See Note
[2024-07-26] MEDS: PANTOPRAZOLE INJ 40 MG VIAL IVP (09:25)
[2024-07-26] MEDS: THIAMINE INJ 100 MG/ML VIAL 2 ML 250 MG IVP (09:26)
[2024-07-26] MEDS: POTASSIUM CHL 10 mEq IVPB 10 MEQ/100 ML BAG 75 MEQ IV ×2 (09:26→11:06)
[2024-07-26] MEDS: FOLIC ACID 1 MG TABLET PO (09:26)
--- NOTE | 2024-07-26 10:15 | PC.SS ---
Addendum entered by Ирина Rinaldi 07/26/24 15:21: Per rounding meeting, pt is ready for d/c and Discharge order is in. ASW contacted pts sister Lorenza [phone] and informed her that pt will be discharged in which she state she is aware and will provide transportation. Original Note: ASW met with Team B and per their report, there may be a possible EGD. Waiting on GI rec's. Pt is in alcohol withdrawal and waiting on rec's of IV meds.
--- NOTE | 2024-07-26 10:16 | ESPR_ITS ---
<Statement entered by Carey Powell MD - 07/26/24 15:01> Patient was seen and examined by me personally. I have directly supervised and reviewed documentation by the team resident and agree with its findings with any exceptions or additional findings as below. Plan of care was discussed with the attending, Dr. Graff. Mr. Marroquin is a 23-year-old male with past medical history of alcohol abuse disorder and withdrawal seizures who was admitted for alcohol withdrawal and seizure on 07/23/2024. He had a witnessed seizure in the ED and was treated with Keppra and Ativan. Since then he has been on CIWA protocol, in the last 48 hours has maintained score 0-1. On admission he was found to have likely alcohol- related liver cirrhosis and GI was consulted for further recommendations. This morning patient is seen calm sitting at the edge of bed, reports no complaints. Patient is scheduled for EGD today and NPO. Carey Powell, PGY-2 Documentation for date of: 07/26/24 Subjective Subjective Interval history: Patient seen and examined at bedside Patient is currently n.p.o., scheduled for EGD today Patient has improved symptoms of alcohol withdrawal, CIWA 1, discontinued Librium. Patient will likely be discharged today if EGD is unremarkable and gastroenterology clears patient for discharge. Exam Vital Signs Temp Pulse Resp BP Pulse Ox O2 Del Method 98.7 F 71 12 116/83 99 Room Air 07/26/24 08:00 07/26/24 08:00 07/26/24 08:00 07/26/24 08:00 07/26/24 08:00 07/26/24 08:00 Narrative Exam General: AAOx3, NAD, young male, pleasant, sitting comfortably in chair HEENT: Moist mucous membranes, conjunctiva clear, EOMI, PERRLA Cardiovascular: S1, S2, radial pulses +2 bilat, RRR Pulmonary: CTAB bilat no cough, no wheezing GI: No tenderness to light or deep palpitation, no guarding, rigidity, rebound tenderness or distension, bowel sounds present Extremities: No presence of trace or pitting edema in lower extremities bilaterally, dorsalis pedis pulses +2 bilaterally, dressing over L wrist Neuro: AAOx3, no focal motor or sensory deficits in the UE or LE bilat Psych: Cooperative, he is not shaking much compared to yesterday, no active hallucinations Objective Labs 07/26/24 04:50 07/26/24 04:50 Labs: Laboratory Results - last 24 hr 07/26/24 04:50 WBC 6.9 RBC 3.48 L Hgb 7.6 L Hct 25.5 L MCV 73 L MCH 21.8 L MCHC 29.8 L RDW Std Deviation 50.8 H Plt Count 154 D Neut % (Auto) 58 Lymph % (Auto) 20 [place] % (Auto) 16 H Eos % (Auto) 5 Baso % (Auto) 1 Neut # (Auto) 4.0 Lymph # (Auto) 1.4 [place] # (Auto) 1.1 H Eos # (Auto) 0.4 Baso # (Auto) 0.1 Immature Gran # (Auto) 0.02 H Absolute Nucleated RBC 0.00 Immature Gran % 0 Nucleated RBC % 0 Sodium 140 Potassium 3.3 L Chloride 103 Carbon Dioxide 24.0 Anion Gap 13 BUN 10 Creatinine 0.7 Estim Creat Clear Calc 145.6 eGFR > 60 BUN/Creatinine Ratio 14 Glucose 100 Calculated Osmolality 278 Calcium 9.0 Corrected Calcium 9.1 Phosphorus 3.6 Magnesium 1.6 Total Bilirubin 1.0 D AST 110 H ALT 49 Alkaline Phosphatase 156 H D Total Protein 7.6 Albumin 3.9 Globulin 3.7 H Albumin/Globulin Ratio 1.1 L Quality Measures Quality Measures none Assessment & Plan Assessment Current Active Medications: Generic Name Dose Route Start Last Admin Trade Name Freq PRN Reason Stop Dose Admin Acetaminophen 650 mg 07/23/24 20:33 Acetaminophen 325 Mg Tablet PO 08/22/24 20:32 Q6H PRN PAIN OR FEVER > 101 Atorvastatin Calcium 10 mg 07/24/24 21:00 07/25/24 21:26 Atorvastatin Calcium 10 Mg Tablet PO 08/23/24 20:59 10 mg HS GEE Administration Chlordiazepoxide HCl 25 mg 07/23/24 22:00 07/26/24 06:03 Chlordiazepoxide Hcl 25 Mg Capsule PO 07/28/24 21:59 25 mg Q8HR GEE Administration Folic Acid 1 mg 07/26/24 09:00 07/26/24 09:26 Folic Acid 1 Mg Tablet PO 08/25/24 08:59 1 mg QDAY GEE Administration Potassium Chloride 10 meq in 100 mls @ 100 mls/hr 07/26/24 07:33 07/26/24 09:26 Kcl Ivpb IV 07/26/24 11:32 75 mls/hr Q1H GEE Administration Lorazepam 1 mg 07/23/24 20:36 Lorazepam 2 Mg/Ml Vial IV Q4HR PRN CIWA 12-16 Lorazepam 2 mg 07/23/24 20:36 Lorazepam 2 Mg/Ml Vial IV 07/28/24 20:35 Q2HR PRN CIWA SCORE 17-25 Lorazepam 0.5 mg 07/23/24 20:36 07/25/24 08:57 Lorazepam 0.5 Mg Tablet PO 07/28/24 20:35 0.5 mg Q4HR PRN Administration CIWA Score 2-6 Lorazepam 1 mg 07/23/24 20:36 07/24/24 08:39 Lorazepam 0.5 Mg Tablet PO 07/28/24 20:35 1 mg Q4HR PRN Administration CIWA SCORE 7-11 Ondansetron HCl 4 mg 07/23/24 20:33 Ondansetron Inj 2 Mg/Ml Inj 2 Ml IV 08/22/24 20:32 Q6H PRN NAUSEA OR VOMITING Protocol Pantoprazole Sodium 40 mg 07/24/24 09:00 07/26/24 09:25 Pantoprazole Inj 40 Mg Vial IVP 08/23/24 08:59 40 mg QDAY GEE Administration Sennosides 2 tab 07/23/24 20:33 Senna Tablet PO 08/22/24 20:32 BID PRN CONSTIPATION Protocol Thiamine HCl 250 mg 07/26/24 09:00 07/26/24 09:26 Thiamine Inj 100 Mg/Ml Vial 2 Ml IVP 08/25/24 08:59 250 mg QDAY GEE Administration Plan Assessment Alpesh is a 23-year-old male with a past medical history of alcohol abuse disorder, withdrawal seizures, who is admitted for alcohol withdrawal and seizure. #Alcohol withdrawal seizure #Alcohol withdrawal #Alcohol use disorder Likely related to acute alcohol withdrawal Patient likely had a seizure due to lactic acidosis that resolved and biting tongue and it was short lasted Patient's CIWA scores have been below 2. Patient continues to improve from a withdrawal perspective Will continue treatment Plan: ? Scheduled for EGD by gastroenterology today ? CIWA protocol with Ativan ? Librium 25mg q8hr; discontinued, symptoms of withdrawal have subsided ? Thiamine 500 mg IV every 8 hours for 2 days, 250 mg for 5 days after ? Folate 1 mg every day ? online services manager referral ? Telemetry ? Keep magnesium and potassium above 4 and 2 respectively ? Seizure precautions #Newly diagnosed cirrhosis #Acalculous cholecystitis, Ruled out Liver ultrasound shows possible acute cholecystitis MRCP ordered and showed cirrhosis and hepatocellular disease, however no cholecystitis No sign of infection at this time Due to new diagnosis of cirrhosis we will consult GI for further workup Plan: ? GI consulted, appreciate recs ? Trend markers with CMP #Iron deficiency microcytic anemia #? Acute blood loss anemia #Thrombocytopenia, improving #Elevated Transminases DDx: GI Bleed, iron deficiency, varices, cirrhosis FOBT? Pending NSAID use? Unsure Blood thinner use? None Hemoglobin 8.0 today AST/ALT elevated in 2;1 fashion, indicative of EtOH use Iron 41 (low), ferritin 17 low normal, TIBC unremarkable, folate and B12 within normal limits, reticulocyte count responding Patient could have iron deficiency anemia Plan: ? Scheduled for EGD today ? Trend CBC ? Peripheral blood smear ? Transfusion protocol hemoglobin below 7 ? Avoiding any NSAIDs ? SCDs ? Protonix 40 mg daily #Hyperlipidemia LDL 130, HDL 123 Plan: ? Continue Lipitor 10 mg at bedtime #Second-degree burn, left wrist Received tetanus shot in ED Currently has dressing at this point Plan: ? Wound care #Leukocytosis, resolved #Lactic acidosis, resolved #Hypokalemia, resolved #Health Maintenance Disposition: Telemetry DVT prophylaxis: SCDs GI prophylaxis: Protonix Diet: Regular CODE STATUS: Full Case discussed with Attending Dr. Graff and Dr. Powell PGY2. Paige Allen PGY1 Disclaimer: This note was dictated by speech recognition. Minor errors in daycare teacher may be present due to voice recognition software. Attending Provider Attestation/Addendum Face to face evaluation was performed by me. I have personally seen and examined the patient. I discussed the assessment and plan with the entire medicine team. I reviewed available medical records, imaging studies, laboratory results. I agree with the above subjective data, objective findings, assessment and plan except as corrected by me or noted below Alcohol dependance syndrome with withdrawal Alcohol withdrwal seizures lactic acidosis Continue with current treatment plan fo dc later today More than > 30 minutes spent on the encounter
--- NOTE | 2024-07-26 11:40 | SUR.PHASEI ---
Arrived to [facility] [place]. Report received from Marli HUMPHREYS. Resting with eyes open. Awake and alert. Responding to name. Confused to place and time. No s/o distress or discomfort. Respirations even and unlabored.
--- NOTE | 2024-07-26 12:03 | SUR.PHASEI ---
Report given to Suzan HUMPHREYS Tele. Taken to room 269 by Mindy HUMPHREYS via [place]. Responding to questions and commands appropriately. No s/o distress or discomfort. No complaints of pain.
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
[2024-07-26 13:50] LABS: OBS QC OK? Yes
[2024-07-26 13:58] LABS: Occult Blood, Stool Negative (Negative)
[2024-07-26 13:59] LABS: OBS Card Lot # 23001; OBS Developer Lot # 75023G
[2024-07-26 14:00] LABS: OBS Performed By LOPED2
[2024-07-26] MEDS: POTASSIUM CHLORIDE 20 mEq TABCR PO (14:08)
== END 2024-07-26 14:35 | disposition home or self-care (01) | DRG 775 ==
LOC: SERX 19:39 → SERHOLD 21:02 → S2NX 22:03
PROVIDERS: Nurse Practitioner Family; Specialist; Student in an Organized Health Care Education/Training Program; Admitting Provider Student in an Organized Health Care Education/Training Program; Emergency Provider Emergency Medicine; Visit Provider Student in an Organized Health Care Education/Training Program
PROC: 0DJ08ZZ Inspection of Upper Intestinal Tract, Via Natural or Artificial Opening Endoscopic (ICD-10-PCS; CPT 43239; principal; 2024-07-26 10:30)
DX: F10.239 Alcohol dependence with withdrawal, unspecified (principal); G40.509 Epileptic seizures related to external causes, not intractable, without status epilepticus; Y90.0 Blood alcohol level of less than 20 mg/100 ml; D50.9 Iron deficiency anemia, unspecified; D72.829 Elevated white blood cell count, unspecified; E87.20 Acidosis, unspecified; J45.909 Unspecified asthma, uncomplicated; E87.6 Hypokalemia; T22.012A Burn of unspecified degree of left forearm, initial encounter; K74.60 Unspecified cirrhosis of liver; I85.10 Secondary esophageal varices without bleeding; K31.89 Other diseases of stomach and duodenum; K29.70 Gastritis, unspecified, without bleeding; D62 Acute posthemorrhagic anemia; D69.6 Thrombocytopenia, unspecified; K82.4 Cholesterolosis of gallbladder; I85.00 Esophageal varices without bleeding; R74.8 Abnormal levels of other serum enzymes; T23.272A Burn of second degree of left wrist, initial encounter; E78.5 Hyperlipidemia, unspecified; T59.811A Toxic effect of smoke, accidental (unintentional), initial encounter; Z23 Encounter for immunization; Z79.899 Other long term (current) drug therapy; E63.9 Nutritional deficiency, unspecified
CPT/HCPCS: 36415; 70450; 76700; 80048; 80053; 80061; 80074; 80076; 80307; 80320; 81001; 82248; 82270; 82607; 82728; 82746; 83540; 83550; 83605; 83615; 83735; 84100; 84443; 85014; 85018; 85025; 85046; 85610; 85730; 86706; 90715; 96361; 96374; 96375; 96376; 99285; J1200; J1953; J2060; J2250; J2405; J2470; J3010; J3411; J3475; J3480; J3490; J7030; J7050; J7120; S8037; 74181; A9270; G0480

== ENCOUNTER 2024-08-03 09:18 | Outpatient (AMB) | payer MEDICAID, SELFPAY ==
--- NOTE | 2024-08-03 10:03 | PD.RESCLINIC ---
Allergies/Meds Allergies & Medications Allergies No Known Allergies Allergy (Verified 08/10/24 10:24) MA Intake Visit Data Collection PCP or OBGYN visit in last 3 months: No Smoking Status Smoking Status: Never smoker Immunization / Flu Flu Vaccine in the Last 12 Months: No Flu Vaccine Exclusion Criteria: No Exclusion Criteria Past Medical History Past Medical History NEUROLOGIC: Positive Seizures CARDIAC: Negative Congestive Heart Failure RESPIRATORY: Negative Chronic Obstructive Pulmonary Disease (COPD) GENITOURINARY: Negative Renal Disease ENDOCRINE: Negative Diabetes Mellitus Type 1 or Diabetes Mellitus Type 2 OTHER HISTORY: Negative Blood Transfusions, Blood Transfusion Reaction or Anesthesia Reactions Social History SMOKING STATUS: Smoking status: Never smoker ALCOHOL: Alcohol Intake: Current ALCOHOL FREQUENCY: Alcohol Intake Frequency: 0-2 Drinks per Day LIVES WITH: Lives With: Family Patient Portal Jana Social History Living Situation History Housing Other:: Pt lives with sister Tobacco History Smoking Status: Never smoker Alcohol History Alcohol Intake: Current Alcohol Intake Frequency: 0-2 Drinks per Day Review of Systems Report any current symptoms Only answer those that you have currently: Past Medical History Past Medical History Have you ever been diagnosed with any of the following: Neurological Problems Seizures: Yes Cardiology Problems Congestive Heart Failure: No Respiratory Problems Chronic Obstructive Pulmonary Disease (COPD): No Genital/Urinary Problems Renal Disease: No Endocrine Problems Diabetes Mellitus Type 1: No Diabetes Mellitus Type 2: No Other Problems Blood Transfusions: No Blood Transfusion Reaction: No Anesthesia Reactions: No History of Present Illness HPI Narrative 08/03/24: Alpesh Marroquin is 23 yr male with history of alcohol use disorder, withdrawal seizure, anemia presenting to clinic today for a follow up. He was recently discharged from [facility] on 07/26/24 due to alcohol withdrawl seizures. He typically would drink 12 pack beer/day but has not drank since his discharge. Patient denies any headache, n/v, abdominal pain, or diarrhea. He has not joined any AA meeting but states he is interested and wants to abstain from alcohol use. Patient is complaint with pantoprazole and ferrous sulfate. Will have him follow up in 1 week after repeating CBC, CMP. Review of Systems Review of Systems Systems Reviewed: All systems reviewed, normal except as documented Objective/Exam Narrative Physical exam: General: young male, No acute distress, cooperative HEENT: NCAT, No JVD noted. Mucosa moist. Pupils are equal and reactive to light bilaterally Cardiovascular: Normal S1 and S2. Regular rate and rhythm. Respiratory: Lungs are clear to auscultation bilaterally. No wheezing or crackles heard. Abdomen: Soft, nontender, not distended, normal bowel sounds. Skin: Warm to touch, dry, no rashes noted Musculoskeletal: No gross injuries. Able to move all 4 extremities. No pitting edema Neuro: Alert and oriented x3. No focal neuro deficits. Psych: Normal affect and mood Assessment & Plan Diagnosis / Problem List (1) Iron deficiency anemia: Status: Acute Assessment & Plan: He typically would drink 12 pack beer/day but has not drank since his discharge. Patient denies any headache, n/v, abdominal pain, or diarrhea. He has not joined any AA meeting but states he is interested and wants to abstain from alcohol use. Inpatient EGD on 07/26/24 showed findings consistent with grade 1 esophageal varices, erythematous mucosa in gastric antrum, erythematous duodenopathy. No bleeding. 07/26 lab: Hb 7.6, Hct 25, MCV 73, potassium 3.3 Plan: -encouraged patient to abstain from alcohol -join support group -continue pantoprazole 40mg daily until end of July -continue ferrous sulfate 325mg daily -return in 1 week after repeating CBC, CMP (2) Alcohol use disorder: Status: Acute Assessment & Plan: As above. Office Procedures [facility] Level of Care Nursing/Assessment Patient Status: Established Patient Nursing Assessment/Reassessment: Medication Reconciliation, Update PMH in EMR and Vital Signs Coordination of Care: Complex Care and Chronic Disease 1-5, Consent,records obtained, informed consent, Education Simp Pt/Fam and Staff clarify orders Established Patient Charge Established Patient Point Assignment: 85 Established Patient Point Charge: EP Level 3 (80-115)
== END 2024-08-03 09:57 | disposition home or self-care (01) ==
LOC: HODAHC 09:18
DX: F10.939 Alcohol use, unspecified with withdrawal, unspecified (principal); D50.9 Iron deficiency anemia, unspecified
CPT/HCPCS: 99213; G0463

== ENCOUNTER 2024-08-10 09:36 | Outpatient (AMB) | payer MEDICAID, SELFPAY ==
[2024-08-10 10:23] VITALS: BP 115/71; PULSE 71; RESP 18; TEMP 36.7; O2SAT 99; BMI 24.7
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
== END 2024-08-10 11:05 | disposition home or self-care (01) ==
LOC: HODAHC 09:36
PROVIDERS: Visit Provider Internal Medicine
DX: D50.9 Iron deficiency anemia, unspecified (principal)
CPT/HCPCS: 99213; G0463

== ENCOUNTER 2024-09-09 14:37 | Outpatient (AMB) | payer MEDICAID, SELFPAY ==
[2024-09-09 14:49] VITALS: BP 116/74; PULSE 91; RESP 17; TEMP 37.1; O2SAT 98; BMI 26.9
--- NOTE | 2024-09-09 14:49 | ACNOTE_ITS ---
Vital Signs 09/09/24 14:49 Height 1.68 m Height Method Measured Weight 75.807 kg Weight Measurement Method Standing Scale BMI 26.9 BP 116/74 Blood Pressure Source Automatic Cuff Blood Pressure Location Right Upper Arm Position Sitting Respiration 17 Pulse 91 Pulse Source Monitor Temp 98.7 F Temp Source Temporal Artery Scan Pulse Oximetry (%) 98 Oxygen Delivery Method Room Air Allergies/Meds Allergies & Medications Allergies No Known Allergies Allergy (Verified 09/09/24 14:50) Medication Reconciliation albuterol sulfate 90 mcg/actuation breath activated powder inhaler 2 inh inhalat ion QID #1 ea 09/12/21 [Rx Confirmed 09/09/24] bacitracin 500 unit/gram topical ointment 1 applic topical TID #28 grams 07/23/24 [Rx Confirmed 09/09/24] MA Intake Visit Data Collection New Patient or Established: Established Patient (seen at [facility] within 3 years) Reason for Visit:: FOLLOW UP Pain Present Currently: No Pain scale:: 0 Pain Scale Used: [employer] Guide Required: No PCP or OBGYN visit in last 3 months: Yes Date of Last PCP or OBGYN visit: 08/10/24 Hx Now: No Do You Feel Safe at Home: Yes Authorities Contacted: N/A Smoking Status Smoking Status: Never smoker Immunization / Flu Flu Vaccine in the Last 12 Months: No Flu Vaccine Exclusion Criteria: No Exclusion Criteria Past Medical History Past Medical History NEUROLOGIC: Positive Seizures CARDIAC: Negative Congestive Heart Failure RESPIRATORY: Negative Chronic Obstructive Pulmonary Disease (COPD) GENITOURINARY: Negative Renal Disease ENDOCRINE: Negative Diabetes Mellitus Type 1 or Diabetes Mellitus Type 2 OTHER HISTORY: Negative Blood Transfusions, Blood Transfusion Reaction or Anesth esia Reactions Social History SMOKING STATUS: Smoking status: Never smoker ALCOHOL: Alcohol Intake: Current ALCOHOL FREQUENCY: Alcohol Intake Frequency: 0-2 Drinks per Day LIVES WITH: Lives With: Family Patient Portal Questionaires PHQ-9 PHQ-2 Over the last 2 weeks, how often have you been bothered by any of the following problems? 1. Little interest or pleasure in doing things: not at all 2. Feeling down, depressed, or hopeless: not at all Total score: 0 PHQ-9 3. Trouble falling or staying asleep, or sleeping too much: Not at all 4. Feeling tired or having little energy: Not at all 5. Poor appetite or overeating: Not at all 6. Feeling bad about yourself - or that you are a failure or have let yourself or your family down: Not at all 7. Trouble concentrating on things, such as reading the newspaper or watching television: Not at all 8. Moving or speaking so slowly that other people could have noticed? - Or the opposite - being so fidgety or restless that you have been moving around a lot more than usual: not at all 9. Thoughts that you would be better off or of hurting yourself in some way: Not at all Total score: 0 If you checked off any problems, how difficult have these problems made it for you to do your work, take care of things at home, or get along with other people?: not difficult at all Source: Developed by Drs. Kristian Nielsen, Essence Mcgarry, Puneet Nieves and colleagues, with an educational leticia from [employer] Social History Living Situation History Housing Other:: Pt lives with sister Tobacco History Smoking Status: Never smoker Alcohol History Alcohol Intake: Current Alcohol Intake Frequency: 0-2 Drinks per Day Domestic Abuse History Do You Feel Safe at Home: Yes Review of Systems Report any current symptoms Only answer those that you have currently: Past Medical History Past Medical History Have you ever been diagnosed with any of the following: Neurological Problems Seizures: Yes Cardiology Problems Congestive Heart Failure: No Respiratory Problems Chronic Obstructive Pulmonary Disease (COPD): No Genital/Urinary Problems Renal Disease: No Endocrine Problems Diabetes Mellitus Type 1: No Diabetes Mellitus Type 2: No Other Problems Blood Transfusions: No Blood Transfusion Reaction: No Anesthesia Reactions: No History of Present Illness [facility] Jacqueline Alpesh Marroquin is a 23-year-old male with past medical history of alcohol use disorder (abstinent since 07/26/2024), alcohol withdrawal seizures, alcohol- related liver cirrhosis, esophageal varices, and iron deficiency anemia who was hospitalized at [facility] from 07/23/2024-07/26/2024 due to alcohol withdrawal seizures. Patient has history of drinking a 12 pack of beer per day. Patient had a witnessed seizure in the ED and was subsequently treated via CIWA protocol in the hospital. Patient was additionally was found to have cirrhosis liver pattern when MRCP was done, which was negative for gallbladder pathology. GI was consulted, EGD was performed which showed Grade I esophageal varices without active bleeding, no bands were placed. 09/14/2024: Patient returns for his 1-month follow up visit, with CBC labs at [facility] showing hemoglobin of 9.3 improved from 8.3 last visit (See scanned lab reports). Platelets normal at 287k. He is doing overall well and has no complaints today. Patient is taking his pantoprazole and ferrous sulfate daily. Patient reports continued complete abstinence from alcohol and states he no longer has any cravings for alcohol. He denies any headache, nausea, vomiting, hematemesis, abdominal pain, or diarrhea. 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 Will have him follow up in 1-2 months for now after repeating CBC. Objective/Exam Narrative Physical exam: Physical Exam General: Awake and in no acute distress. Conversational and non-toxic appearing. HEENT: Normocephalic, atraumatic, mucous membranes moist. Heart: Regular rate and rhythm, normal S1 and S2, no murmurs. Lungs: Clear to auscultation with no wheezing or crackles. Abdomen: Soft, nondistended, nontender, positive bowel sounds. ?No guarding or rebound tenderness. Neurologic: Alert and oriented x3, no gross neurological deficit, and patient able to move all 4 extremities. Extremities: No edema. Skin: No rash or ecchymoses. Results [facility] drawn 09/01/2024 - Hgb 9.3 See Scanned Lab Reports. Assessment & Plan Diagnosis / Problem List (1) Iron deficiency anemia: Status: Acute Qualifiers: Iron deficiency anemia type: chronic blood loss Qualified Code(s): D50.0 - Iron deficiency anemia secondary to blood loss (chronic) Assessment & Plan: 08/06/2024: Hgb 8.3, Platelets 432k 09/01/2024: Hgb 9.3, Platelets 287k Plan: -Continue ferrous sulfate 325 mg once daily (Last refill 08/10/2024) -Continue pantoprazole 40 mg once daily (Last refill 08/10/2024) -Follow up visit, patient decided to follow up in 1 month -Obtain repeat CBC 1 week prior to visit, check Hgb (2) Alcohol use disorder: Status: Resolved Assessment & Plan: Patient used to drink 12 beers daily. He has history of alcohol withdrawal seizures. Since 07/26/2024 upon discharge from the hospital, he has been abstinent from alcohol. Plan: -Continue alcohol abstinence (3) Alcoholic cirrhosis of liver: Status: Chronic Qualifiers: Ascites presence: without ascites Qualified Code(s): K70.30 - Alcoholic cirrhosis of liver without ascites Assessment & Plan: As seen on MRCP which showed irregular liver contour on 07/25/2024. Patient had mild thrombocytopenia, elevated total bilirubin, now resolved, just has slightly elevated AST in the 100s. Patient denies symptoms, has no physical exam findings concerning for ESLD. Plan: -Continue alcohol abstinence (4) Esophageal varices determined by endoscopy: Status: Chronic Assessment & Plan: Endoscopy on 07/26/[address] Swenson showed Grade I non- bleeding esophageal varices with erythematous mucosa. No bands were placed. Recommendations were to completely abstain from alcohol and start PPI daily for limited duration. Plan: -Continue ferrous sulfate 325 mg once daily (Last refill 08/10/2024) -Continue pantoprazole 40 mg once daily (Last refill 08/10/2024) - will stop after next visit -Continue alcohol abstinence Office Procedures [facility] Level of Care Nursing/Assessment Patient Status: Established Patient Nursing Assessment/Reassessment: Medication Reconciliation, Update PMH in EMR and Vital Signs Coordination of Care: Complex Care/Chronic Disease 5 or more, Consent,records obtained, informed consent and Education Simp Pt/Fam Established Patient Charge Established Patient Point Assignment: 85 Established Patient Point Charge: EP Level 3 (80-115) TB Screening LTBI Screening: Has patient traveled, was born, or resided for at least 1 month, or frequent border crossing into a country with an elevated TB rate: No Immunosuppression, current or planned (HIV, organ transplant, treated with biologic agents, steroids, or other immunosuppression medication): No Close contact to someone with infectious TB disease during lifetime: No Homelessness or incarceration, current or past: No TB testing indicated at this time (at least 1 yes above): No
== END 2024-09-09 15:11 | disposition home or self-care (01) ==
LOC: HODAHC 14:37
PROVIDERS: PCP Student in an Organized Health Care Education/Training Program; Referring Provider Student in an Organized Health Care Education/Training Program; Supervising Provider Internal Medicine; Visit Provider Student in an Organized Health Care Education/Training Program
DX: D50.9 Iron deficiency anemia, unspecified (principal); K70.30 Alcoholic cirrhosis of liver without ascites; I85.10 Secondary esophageal varices without bleeding
CPT/HCPCS: 99213; G0463

== ENCOUNTER 2024-10-08 08:49 | Outpatient (AMB) | payer MEDICAID, SELFPAY ==
--- NOTE | 2024-10-08 09:04 | ACNOTE_ITS ---
Vital Signs 10/08/24 09:05 Height 1.68 m Height Method Stated Weight 76.884 kg Weight Measurement Method Standing Scale BMI 27.2 BP 123/63 Blood Pressure Source Automatic Cuff Blood Pressure Location Right Upper Arm Position Sitting Respiration 18 Pulse 82 Pulse Source Monitor Temp 98.2 F Temp Source Temporal Artery Scan Pulse Oximetry (%) 99 Oxygen Delivery Method Room Air Allergies/Meds Allergies & Medications Allergies No Known Allergies Allergy (Verified 09/09/24 14:50) MA Intake Visit Data Collection New Patient or Established: Established Patient (seen at [facility] within 3 years) Seen by Clinical Staff ONLY (RN/MA): No Reason for Visit:: FOLLOW UP LAB RESULTS Pain Present Currently: No Application Security Consultant Required: No PCP or OBGYN visit in last 3 months: Yes Date of Last PCP or OBGYN visit: 09/09/24 Do You Feel Safe at Home: Yes Authorities Contacted: N/A Smoking Status Smoking Status: Never smoker Immunization / Flu Flu Vaccine in the Last 12 Months: Yes Flu Vaccine Exclusion Criteria: Already Received Past Medical History Past Medical History NEUROLOGIC: Positive Seizures CARDIAC: Negative Congestive Heart Failure RESPIRATORY: Negative Chronic Obstructive Pulmonary Disease (COPD) GENITOURINARY: Negative Renal Disease ENDOCRINE: Negative Diabetes Mellitus Type 1 or Diabetes Mellitus Type 2 OTHER HISTORY: Negative Blood Transfusions, Blood Transfusion Reaction or Anesthesia Reactions Social History SMOKING STATUS: Smoking status: Never smoker ALCOHOL: Alcohol Intake: Current ALCOHOL FREQUENCY: Alcohol Intake Frequency: 0-2 Drinks per Day LIVES WITH: Lives With: Family Patient Portal Questionaires PHQ-9 PHQ-2 Over the last 2 weeks, how often have you been bothered by any of the following problems? 1. Little interest or pleasure in doing things: not at all PHQ-9 8. Moving or speaking so slowly that other people could have noticed? - Or the o pposite - being so fidgety or restless that you have been moving around a lot more than usual: not at all Source: Developed by Drs. Kristian Nielsen, Essence Mcgarry, Puneet Nieves and colleagues, with an educational leticia from [employer]. Social History Living Situation History Housing Other:: Pt lives with sister Tobacco History Smoking Status: Never smoker Alcohol History Alcohol Intake: Current Alcohol Intake Frequency: 0-2 Drinks per Day Domestic Abuse History Do You Feel Safe at Home: Yes Review of Systems Report any current symptoms Only answer those that you have currently: Past Medical History Past Medical History Have you ever been diagnosed with any of the following: Neurological Problems Seizures: Yes Cardiology Problems Congestive Heart Failure: No Respiratory Problems Chronic Obstructive Pulmonary Disease (COPD): No Genital/Urinary Problems Renal Disease: No Endocrine Problems Diabetes Mellitus Type 1: No Diabetes Mellitus Type 2: No Other Problems Blood Transfusions: No Blood Transfusion Reaction: No Anesthesia Reactions: No History of Present Illness HPI Jacqueline Marroquin is a 23-year-old male with past medical history of alcohol use disorder (abstinent since 07/26/2024), alcohol withdrawal seizures, alcohol- related liver cirrhosis, esophageal varices, and iron deficiency anemia who was hospitalized at [facility] from 07/23/2024-07/26/2024 due to alcohol withdrawal seizures. Patient has history of drinking a 12 pack of beer per day. Patient had a witnessed seizure in the ED and was subsequently treated via CIWA protocol in the hospital. Patient was additionally was found to have cirrhosis liver pattern when MRCP was done, which was negative for gallbladder pathology. GI was consulted, EGD was performed which showed Grade I esophageal varices without active bleeding, no bands were placed. 09/14/2024: Patient returns for his 1-month follow up visit, with CBC labs at [facility] showing hemoglobin of 9.3 improved from 8.3 last visit (See scanned lab reports). Platelets normal at 287k. He is doing overall well and has no complaints today. Patient is taking his pantoprazole and ferrous sulfate daily. Patient reports continued complete abstinence from alcohol and states he no longer has any cravings for alcohol. He denies any headache, nausea, vomiting, hematemesis, abdominal pain, or diarrhea. 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 Will have him follow up in 1-2 months for now after repeating CBC. 10/08/2024: Patient was seen in the clinic after a month for follow-up with CBC. Patient reported no acute symptoms and denied any chest pain, breathing difficulty, abdominal pain or blood in stool. He ran out of his medications including pantoprazole and ferrous sulfate. Prescription refill was given for pantoprazole and ferrous sulfate. CBC showed hemoglobin 10.7 improved from previous 9.3. MCV still low. Platelet was stable to 285. Patient was advised to continue taking his medications as prescribed and follow-up in a month with another CBC to evaluate/monitor improvement. Follow-up in a month. Review of Systems Review of Systems Systems Reviewed: All systems reviewed, normal except as documented Objective/Exam Narrative Physical exam: GENERAL APPEARANCE: AxOx4, generally well-appearing male in no acute distress. HEENT: NC, AT. MMM. EOMI, clear conjunctiva, oropharynx clear. NECK: Supple without lymphadenopathy. No stiffness or restricted ROM. HEART: Regular rate and regular rhythm, normal S1/S2, no m/r/g LUNGS: CTAB, moving air well. No crackles or wheezes are heard. ABDOMEN: Soft, nontender, nondistended with good bowel sounds heard. BACK: No CVAT, no obvious deformity. EXTREMITIES: Without cyanosis, clubbing or edema. NEUROLOGICAL: Grossly nonfocal. Alert and oriented, moving all 4 extremities. CN not formally tested but appear grossly intact. Observed to ambulate with normal gait. Skin: Warm and dry without any rash. Psych: Appropriate mood and affect Assessment & Plan Diagnosis / Problem List (1) Esophageal varices determined by endoscopy: Status: Chronic Assessment & Plan: -Endoscopy on 07/26/[address] Swenson showed Grade I non- bleeding esophageal varices with erythematous mucosa. No bands were placed. Re commendations were to completely abstain from alcohol and start PPI daily for limited duration. -10/08: No acute symptoms reported. Plan: -Continue ferrous sulfate 325 mg once daily (Last refill 10/08/2024) -Continue pantoprazole 40 mg once daily (Last refill 10/08/2024) stop after a month -Continue alcohol abstinence (2) Alcoholic cirrhosis of liver: Status: Chronic Qualifiers: Ascites presence: without ascites Qualified Code(s): K70.30 - Alcoholic cirrhosis of liver without ascites Assessment & Plan: -Patient used to drink 12 beers daily. He has history of alcohol withdrawal seizures. Since 07/26/2024 upon discharge from the hospital, he has been abstinent from alcohol. -As seen on MRCP which showed irregular liver contour on 07/25/2024. Patient had mild thrombocytopenia, elevated total bilirubin, now resolved, just has slightly elevated AST in the 100s. Patient denies symptoms, has no physical exam findings concerning for ESLD. 10/08: Patient completely stopped drinking alcohol. No acute symptoms reported. Plan: -Continue alcohol abstinence (3) Iron deficiency anemia: Status: Acute Qualifiers: Iron deficiency anemia type: chronic blood loss Qualified Code(s): D50.0 - Iron deficiency anemia secondary to blood loss (chronic) Assessment & Plan: 08/06/2024: Hgb 8.3, Platelets 432k 09/01/2024: Hgb 9.3, Platelets 287k 10/08/2024: Hemoglobin 10.7, platelets 285K Plan: -Recommended to continue ferrous sulfate every other day refilled -Continue pantoprazole 40 mg once daily refilled -Follow-up visit after month -Ordered another CBC 1 week prior to visit to check hemoglobin Patient was seen and discussed with attending physician, Dr.Watanakunakorn Dr. Liset MD, PGY 3 Office Procedures [facility] Level of Care Nursing/Assessment Patient Status: Established Patient Nursing Assessment/Reassessment: Medication Reconciliation, Update PMH in EMR and Vital Signs Coordination of Care: Complex Care and Chronic Disease 1-5, Consent,records obtained, informed consent, Lab and Imaging orders and Results/Orders obtained Established Patient Charge Established Patient Point Assignment: 80 Established Patient Point Charge: Level 3 (80-115)
[2024-10-08 09:05] VITALS: BP 123/63; PULSE 82; RESP 18; TEMP 36.8; O2SAT 99; BMI 27.2
== END 2024-10-08 09:28 | disposition home or self-care (01) ==
PROVIDERS: PCP Student in an Organized Health Care Education/Training Program; Referring Provider Student in an Organized Health Care Education/Training Program; Supervising Provider Internal Medicine; Visit Provider Student in an Organized Health Care Education/Training Program
DX: K70.30 Alcoholic cirrhosis of liver without ascites (principal); I85.10 Secondary esophageal varices without bleeding; D50.0 Iron deficiency anemia secondary to blood loss (chronic); Z76.0 Encounter for issue of repeat prescription
CPT/HCPCS: 99213; G0463

== ENCOUNTER 2024-11-04 14:49 | Outpatient (AMB) | payer MEDICAID, SELFPAY ==
--- NOTE | 2024-11-04 14:52 | PD.RESCLINIC ---
Allergies/Meds Allergies & Medications Allergies No Known Allergies Allergy (Verified 11/04/24 14:53) Medication Reconciliation albuterol sulfate 90 mcg/actuation breath activated powder inhaler 2 inh inhalation QID #1 ea 09/12/21 [Rx Confirmed 11/04/24] bacitracin 500 unit/gram topical ointment 1 applic topical TID #28 grams 07/23/24 [Rx Confirmed 11/04/24] ferrous sulfate 325 mg (65 mg iron) tablet 325 mg PO .qod #90 tabs 10/08/24 [Rx Confirmed 11/04/24] pantoprazole 40 mg tablet,delayed release (Protonix) 40 mg PO QDAY #30 tabs 10/08/24 [Rx Confirmed 11/04/24] MA Intake Visit Data Collection New Patient or Established: Established Patient (seen at [facility] within 3 years) Seen by Clinical Staff ONLY (RN/MA): No Pain Present Currently: No PCP or OBGYN visit in last 3 months: Yes Do You Feel Safe at Home: Yes Authorities Contacted: N/A Smoking Status Smoking Status: Never smoker For Televisit only Telemed Video/Phone Visit: Yes Verbal consent obtained for Telemed visit?: Yes Verbal Consent witness name: GERA Telemed Video/Phone visit w/Clinical Staff: 21-30 min Immunization / Flu Flu Vaccine in the Last 12 Months: No Flu Vaccine Exclusion Criteria: No Exclusion Criteria Past Medical History Past Medical History NEUROLOGIC: Positive Seizures CARDIAC: Negative Congestive Heart Failure RESPIRATORY: Negative Chronic Obstructive Pulmonary Disease (COPD) GENITOURINARY: Negative Renal Disease ENDOCRINE: Negative Diabetes Mellitus Type 1 or Diabetes Mellitus Type 2 OTHER HISTORY: Negative Blood Transfusions, Blood Transfusion Reaction or Anesthesia Reactions Social History SMOKING STATUS: Smoking status: Never smoker ALCOHOL: Alcohol Intake: Current ALCOHOL FREQUENCY: Alcohol Intake Frequency: 0-2 Drinks per Day LIVES WITH: Lives With: Family Patient Portal Questionaires PHQ-9 PHQ-2 Over the last 2 weeks, how often have you been bothered by any of the following problems? 1. Little interest or pleasure in doing things: not at all PHQ-9 8. Moving or speaking so slowly that other people could have noticed? - Or the opposite - being so fidgety or restless that you have been moving around a lot more than usual: not at all Source: Developed by Drs. Kristian Nielsen, EssencePuneet Alvarado and colleagues, with an educational leticia from [employer]. Social History Living Situation History Housing Other:: Pt lives with sister Tobacco History Smoking Status: Never smoker Alcohol History Alcohol Intake: Current Alcohol Intake Frequency: 0-2 Drinks per Day Domestic Abuse History Do You Feel Safe at Home: Yes Review of Systems Report any current symptoms Only answer those that you have currently: Past Medical History Past Medical History Have you ever been diagnosed with any of the following: Neurological Problems Seizures: Yes Cardiology Problems Congestive Heart Failure: No Respiratory Problems Chronic Obstructive Pulmonary Disease (COPD): No Genital/Urinary Problems Renal Disease: No Endocrine Problems Diabetes Mellitus Type 1: No Diabetes Mellitus Type 2: No Other Problems Blood Transfusions: No Blood Transfusion Reaction: No Anesthesia Reactions: No History of Present Illness HPI Narrative Alpesh Marroquin is a 23-year-old male with past medical history of alcohol use disorder (abstinent since 07/26/2024), alcohol withdrawal seizures, alcohol-related liver cirrhosis, esophageal varices, and iron deficiency anemia who was hospitalized at [facility] from 07/23/2024-07/26/2024 due to alcohol withdrawal seizures. Patient has history of drinking a 12 pack of beer per day. Patient had a witnessed seizure in the ED and was subsequently treated via CIWA protocol in the hospital. Patient was additionally was found to have cirrhosis liver pattern when MRCP was done, which was negative for gallbladder pathology. GI was consulted, EGD was performed which showed Grade I esophageal varices without active bleeding, no bands were placed. 09/14/2024: Patient returns for his 1-month follow up visit, with CBC labs at [facility] showing hemoglobin of 9.3 improved from 8.3 last visit (See scanned lab reports). Platelets normal at 287k. He is doing overall well and has no complaints today. Patient is taking his pantoprazole and ferrous sulfate daily. Patient reports continued complete abstinence from alcohol and states he no longer has any cravings for alcohol. He denies any headache, nausea, vomiting, hematemesis, abdominal pain, or diarrhea. 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 Will have him follow up in 1-2 months for now after repeating CBC. 10/08/2024: Patient was seen in the clinic after a month for follow-up with CBC. Patient reported no acute symptoms and denied any chest pain, breathing difficulty, abdominal pain or blood in stool. He ran out of his medications including pantoprazole and ferrous sulfate. Prescription refill was given for pantoprazole and ferrous sulfate. CBC showed hemoglobin 10.7 improved from previous 9.3. MCV still low. Platelet was stable to 285. Patient was advised to continue taking his medications as prescribed and follow-up in a month with another CBC to evaluate/monitor improvement. Follow-up in a month. 11/04/2024: Telephone visit for follow up CBC which showed Hgb level, 10.4. Platelet level stable at 250k. Patient is doing well, denied any melanotic stools, hematochezia, or hematemesis. He is taking his iron supplement. He continues to abstain from alcohol. Patient reports some cough episodes that happen a couple times a month and asks if he has been diagnosed with asthma. Informed patient that asthma is diagnosed through pulmonary testing. Patient states that he works in the [employer] sometimes and has the episodes trigger around this environment. He denies any difficulty breathing or wheezing. Informed patient that if episodes worsen, increase in frequency, or appear to affect his breathing, he can come in for an evaluation and we can prescribe him an inhaler to see if this improves symptoms. Another possibility includes allergies. Will have patient follow up in 3 months. Objective/Exam Narrative Physical exam: Physical Exam: Limited due to phone visit. Patient conversational, appropriate affect. Assessment & Plan Diagnosis / Problem List (1) Iron deficiency anemia: Status: Acute Qualifiers: Iron deficiency anemia type: chronic blood loss Qualified Code(s): D50.0 - Iron deficiency anemia secondary to blood loss (chronic) Assessment & Plan: 08/06/2024: Hgb 8.3 09/01/2024: Hgb 9.3 10/08/2024: Hgb 10.7 11/04/2024: Hgb 10.4 Plan: -Continue ferrous sulfate 325 mg every other day (Last refill 10/08/2024) -Stop pantoprazole 40 mg once daily (completed course as per GI recommendation) -Follow up in 3 months (2) Alcoholic cirrhosis of liver: Status: Chronic Qualifiers: Ascites presence: without ascites Qualified Code(s): K70.30 - Alcoholic cirrhosis of liver without ascites Assessment & Plan: Patient used to drink 12 beers daily. He has history of alcohol withdrawal seizures. Since 07/26/2024 upon discharge from the hospital, he has been abstinent from alcohol. As seen on MRCP which showed irregular liver contour on 07/25/2024. Patient had mild thrombocytopenia, elevated total bilirubin, now resolved, just has slightly elevated AST in the 100s. Patient denies symptoms, has no physical exam findings concerning for ESLD. Plan: -Continue alcohol abstinence (3) Esophageal varices determined by endoscopy: Status: Chronic Assessment & Plan: Endoscopy on 07/26/[address] Swenson showed Grade I non-bleeding esophageal varices with erythematous mucosa. No bands were placed. Recommendations were to completely abstain from alcohol and start PPI daily for limited duration. Plan: -Continue ferrous sulfate 325 mg every other day (Last refill 10/08/2024) -Continue alcohol abstinence Additional Assessment Attending note: I, Toni Terrell MD, attest that I was physically present for the pierce portions of the service completed via telehealth, and I reviewed and discussed the case with the resident and agree with the resident's plans of care as documented above. Toni Terrell MD Physician Billing Established Patient Established Patient: E/M Level 2-CPT 14751 Office Procedures [facility] Level of Care Nursing/Assessment Patient Status: Established Patient Nursing Assessment/Reassessment: Medication Reconciliation and Update PMH in EMR Coordination of Care: Complex Care and Chronic Disease 1-5, Education Complex Pt/Fam, Results/Orders obtained and Staff clarify orders Established Patient Charge Established Patient Point Assignment: 75 Telehealth Telemed Phone/Video with patient at home & Dr,PA,[employer] HELPER HAND: Yes
== END 2024-11-04 15:23 | disposition home or self-care (01) ==
LOC: HODAHC 14:49
DX: D50.0 Iron deficiency anemia secondary to blood loss (chronic) (principal); K70.30 Alcoholic cirrhosis of liver without ascites; I85.10 Secondary esophageal varices without bleeding
CPT/HCPCS: 99212; G0463